=== PATIENT | male | born 1955 | race Caucasian/White ===

== ENCOUNTER 2020-08-18 01:33 | Outpatient (CLI) | payer MEDICARE, SELFPAY ==
[2020-08-18 19:31] LABS: SARS-CoV-2 RNA PCR Negative
== END 2020-08-18 01:34 | disposition home or self-care (01) ==
LOC: ANHCOVIDDT 01:33
PROVIDERS: PCP Family Medicine; Visit Provider Otolaryngology
DX: Z01.812 Encounter for preprocedural laboratory examination (principal); Z20.828 Contact with and (suspected) exposure to other viral communicable diseases
CPT/HCPCS: 87635; C9803; U0003

== ENCOUNTER 2020-08-21 00:11 | Day surgery (SDC) | payer MEDICARE, SELFPAY ==
[2020-08-13 10:15] VITALS: BMI 27.4
--- NOTE | 2020-08-15 14:39 | PC.NURSE ---
NEW TIME GIVEN TO PT
--- NOTE | 2020-08-20 12:43 | WPDANESEPPF ---
Anes - Initial Pre Proc Eval Procedure: Operation Date: 08/21/20 12:25 Proposed Procedures p Parathyroid Exploration - Lars Edward MD Date/Time: 08/20/20 12:43 Surgeon: Lars Edward MD Pre Op Diagnosis: Hyper Parathyroidism Patient Data Age: 65 Gender: M Height: 1.73 m Weight: 81.8 kg Allergies Allergy/AdvReac Type Severity Reaction Status Date / Time No Known Allergies Allergy Verified 08/21/20 10:07 Home Medications Medication Instructions Recorded Confirmed Type aspirin 81 mg tablet,delayed 81 mg PO DAILY 07/03/20 08/13/20 History release cholecalciferol (vitamin D3) 25 See Rx Instructions .ROUTE 07/03/20 08/13/20 Rx mcg (1,000 unit) tablet .COMPLEX #125 tablet multivit,calc,mins-folic 240 1 tablet PO QAM 07/03/20 08/13/20 History mcg-vit K1 30 mcg-lycopene 300 mcg tablet omeprazole 20 mg capsule,delayed 20 mg PO HS 07/03/20 08/13/20 History release tamsulosin 0.4 mg capsule 0.8 mg PO HS 07/03/20 08/13/20 History cholecalciferol (vitamin D3) 25 mcg PO DAILY 08/13/20 08/13/20 History Patient hx anesthesia problems: none Family hx anesthesia problems: none PMFSH Past Medical History Medical History (Updated 08/20/20 @ 12:43 by Kingston Esteban DO) Back pain GERD (gastroesophageal reflux disease) Hearing loss Hyperparathyroidism Osteoarthritis Surgical History Surgical History (Updated 08/20/20 @ 12:43 by Kingston Esteban DO) History of bladder surgery Family History Family History (Updated 07/03/20 @ 11:57 by Jeison Ruff) Other Arthritis Blood disorder CHF (congestive heart failure), NYHA class I COPD (chronic obstructive pulmonary disease) Cancer Cataract Diabetes mellitus Glaucoma H/O: HTN (hypertension) Prostate disease Ulcer Vision loss Social History Social History Smoking status: Never smoker Second hand tobacco smoke exposure: No Alcohol intake: never Substance use: never Substance use type: does not use Living arrangements: with family Spiritual care concerns: No Anes - Eval Final PreProcedure Day of Procedure 08/20/20 12:43 Patient weight: overweight Heart: regular rate and rhythm Lungs: clear to auscultation and normal air movement Airway: Mallampati scale class II Neurological: alert and oriented Last oral intake: >/= 8 hours ASA classification: III Emergent: no Anesthetic plan: proceed Anesthesia type and monitoring: general ETT and standard monitoring Informed Consent: The patient's anesthetic plan and its attendant risks and benefits were discussed with the patient/family/POA. Questions were solicited and answers provided to the satisfaction of the patient/family/POA.
--- NOTE | ~2020-08-21 | NM_ITS ---
EXAMINATION: NM parathyroid injection only DATE: 08/21/2020 11:16 INDICATION: Parathyroid adenoma TECHNIQUE/FINDINGS/IMPRESSION: 4.7 mCi Tc99m sestamibi was administered by intravenous route for intraoperative guidance during plan valentin parathyroidectomy to be performed by Dr. Edward. No images were requested or obtained. Reviewed, dictated and finalized at location A. OR LIVING ADVISOR
--- NOTE | 2020-08-21 06:14 | PM.HPGS ---
History of Present Illness History of Present Illness Consent: Risks, benefits, and alternatives have been discussed and questions answered. Patient agrees to proceed with procedure. Chief complaint: Hyper Parathyroidism Narrative: Elbert Erazo is a 65 year old male with documented parathyroid adenoma plan is to remove the parathyroid adenoma with a neck exploration Review of Systems Review of Systems: All systems reviewed & are unremarkable except as noted in HPI and below PMFSH Past Medical History Medical History (Updated 08/20/20 @ 12:43 by Kingston Esteban DO) Back pain GERD (gastroesophageal reflux disease) Hearing loss Hyperparathyroidism Osteoarthritis Surgical History Surgical History (Updated 08/20/20 @ 12:43 by Kingston Esteban DO) History of bladder surgery Family History Family History (Updated 07/03/20 @ 11:57 by Jeison Ruff) Other Arthritis Blood disorder CHF (congestive heart failure), NYHA class I COPD (chronic obstructive pulmonary disease) Cancer Cataract Diabetes mellitus Glaucoma H/O: HTN (hypertension) Prostate disease Ulcer Vision loss Social History Social History Smoking status: Never smoker Second hand tobacco smoke exposure: No Alcohol intake: never Substance use: never Substance use type: does not use Living arrangements: with family Spiritual care concerns: No Meds Home Medications and Allergies Home Medications Medication Instructions Recorded Confirmed Type aspirin 81 mg tablet,delayed 81 mg PO DAILY 07/03/20 08/13/20 History release cholecalciferol (vitamin D3) 25 See Rx Instructions .ROUTE 07/03/20 08/13/20 Rx mcg (1,000 unit) tablet .COMPLEX #125 tablet multivit,calc,mins-folic 240 1 tablet PO QAM 07/03/20 08/13/20 History mcg-vit K1 30 mcg-lycopene 300 mcg tablet omeprazole 20 mg capsule,delayed 20 mg PO HS 07/03/20 08/13/20 History release tamsulosin 0.4 mg capsule 0.8 mg PO HS 07/03/20 08/13/20 History cholecalciferol (vitamin D3) 25 mcg PO DAILY 08/13/20 08/13/20 History Allergies Allergy/AdvReac Type Severity Reaction Status Date / Time No Known Allergies Allergy Verified 08/13/20 10:10 Assessment and Plan Additional Plan Plan is a parathyroid exploration removal of parathyroid adenoma
--- NOTE | 2020-08-21 06:15 | WPDHPUPDATE1 ---
History and Physical Update Update Date/Time: 08/21/20 06:15 History and Physical has been reviewed, including an updated exam of the patient. There are NO changes in the patient's condition. Risks, benefits, and alternatives have been discussed and questions answered. Patient agrees to proceed with procedure.
[2020-08-21 09:37] VITALS: BP 147/81; PULSE 68; RESP 20; TEMP 36.6; O2SAT 100
[2020-08-21] MEDS: ACETAMINOPHEN 500 MG TABLET 1000 MG PO (10:10)
[2020-08-21] MEDS: LACTATED RINGERS 1,000 ML 30 ML IV CONT ×2 (10:19→12:40)
[2020-08-21] MEDS: LIDO 1%/EPINEPHRINE 1:100,000 50 ML VIAL INFILTRATE (11:07)
[2020-08-21] MEDS: ceFAZolin 2 GM/D5W 50 ML 2 GM/50 ML BAG IVPB (11:19)
--- NOTE | 2020-08-21 12:19 | SUR.OPER ---
Frozen section sent to pathology by kirill Lenz and received in pathology by Amalia
--- NOTE | 2020-08-21 12:35 | PM.PROC ---
Procedure Note - Detailed Date of procedure: 08/21/20 Pre-op diagnosis: Hyper Parathyroidism Post-op diagnosis: same Procedure performed: Parathyroid exploration Description of procedure: Patient was prepped and draped usual fashion general anesthesia a low collar incision was made injected xylocaine with adrenaline dissection carried down the muscles were retracted left lobe of the thyroid was identified a large parathyroid adenoma was identified dissected free by sharp and blunt dissection sent for frozen section confirmed to be a parathyroid adenoma was then closed in layers of no chromic and Monocryl and glue Anesthesia: GLMA Surgeon: Lars Edward MD Estimated blood loss (mL): 0 Drains: No Packing: No Pathology: yes Complications: No immediate complications Condition: stable Disposition: PACU Findings: Large left parathyroid adenoma
[2020-08-21 12:43] VITALS: BP 113/60; PULSE 88; RESP 10; TEMP 36.1; O2SAT 99
[2020-08-21 13:00] VITALS: BP 124/79; PULSE 87; RESP 14; O2SAT 98
[2020-08-21 13:15] VITALS: BP 122/79; PULSE 90; RESP 12; O2SAT 96
[2020-08-21 13:22] VITALS: BP 132/73; PULSE 75; RESP 14
[2020-08-21 13:50] VITALS: BP 115/65; PULSE 73; RESP 14
== END 2020-08-21 14:08 | disposition home or self-care (01) ==
PROVIDERS: PCP Family Medicine; Visit Provider Otolaryngology
PROC: (CPT 60500; principal; 2020-08-21 12:25)
DX: D35.1 Benign neoplasm of parathyroid gland (principal); E21.3 Hyperparathyroidism, unspecified; K21.9 Gastro-esophageal reflux disease without esophagitis; M19.90 Unspecified osteoarthritis, unspecified site; Z79.82 Long term (current) use of aspirin
CPT/HCPCS: 60500; 78808; 88305; 88331; A9270; A9500; J0690; J1100; J2370; J2405; J3010; J7120

== ENCOUNTER 2021-02-06 14:17 | Outpatient (CLI) | payer MEDICARE, SELFPAY ==
--- NOTE | 2021-02-06 14:48 | ECG_ITS ---
Measurements Intervals [place] Rate: 55 P: 52 VT: 153 QRS: 19 QRSD: 92 T: 61 QT: 393 QTc: 379 Interpretive Statements SINUS BRADYCARDIA CONSIDER INFERIOR INFARCT, AGE INDETERMINATE ABNORMAL ECG Electronically Signed On 02-06-2021 15:12:34 CDT by Boo Crain D.O.
== END 2021-02-06 14:18 | disposition home or self-care (01) ==
PROVIDERS: PCP Family Medicine; Visit Provider Family Medicine
DX: R07.89 Other chest pain (principal); R94.31 Abnormal electrocardiogram [ECG] [EKG]
CPT/HCPCS: 93005

== ENCOUNTER → 2022-08-13 10:17 | Outpatient (CLI) | payer MEDICARE, SELFPAY ==
--- NOTE | ~2022-08-13 | XR_ITS ---
XR chest 2V DATE: 08/13/2022 10:53 INDICATION: Chronic cough TECHNIQUE: 2 views COMPARISON: None FINDINGS: Normal heart size. No hilar or mediastinal enlargement. No pulmonary infiltrate or consolid ation, pleural effusion or pulmonary vascular congestion or pneumothorax. Minimal degenerative spurring of the thoracic spine. Minimal thoracic scoliosis. IMPRESSION: No active cardiopulmonary disease Reviewed, dictated and finalized at location B. ER STRAIGHTENED
== END ==
PROVIDERS: PCP Family Medicine; Visit Provider Family Medicine
DX: R05.3 Chronic cough (principal)
CPT/HCPCS: 71046

== ENCOUNTER 2023-05-27 21:32 | Emergency (ER) | payer MEDICARE, SELFPAY ==
[2023-05-27 21:34] VITALS: BP 141/73; PULSE 79; RESP 15; TEMP 37.1; O2SAT 98
[2023-05-27 23:57] VITALS: BP 148/72; PULSE 72; RESP 15; TEMP 36.7; O2SAT 97
[2023-05-28 01:17] VITALS: BP 149/74; PULSE 60; RESP 18; O2SAT 98
--- NOTE | 2023-05-28 01:42 | ED.ALLEREA ---
HPI - Allergic Reaction General Chief complaint: Allergic Reaction Stated complaint: bee sting Time Seen by Provider: 05/28/23 01:28 Source: patient Mode of arrival: ambulatory Limitations: no limitations History of Present Illness HPI narrative: This is a 68-year-old male that presents to the emergency department for an insect sting on his left ear. Reports he was stung by a bee yesterday morning. He took a dose of Benadryl in the afternoon. He has continued to have swelling of his left outer ear and left lower eyelid. Denies difficulty breathing or trouble swallowing. Related Data Home Medications Medication Instructions Recorded Confirmed aspirin 81 mg tablet,delayed 81 mg PO DAILY 07/03/20 11/28/20 release (Adult Aspirin Regimen) multivit,calc,mins-folic 240 1 tablet PO QAM 07/03/20 11/28/20 mcg-vit K1 30 mcg-lycopene 300 mcg tablet (One-A-Day Men's Complete) omeprazole 20 mg capsule,delayed 20 mg PO HS 07/03/20 11/28/20 release tamsulosin 0.4 mg capsule 0.8 mg PO HS 07/03/20 11/28/20 cholecalciferol (vitamin D3) 25 25 mcg PO DAILY 08/13/20 11/28/20 mcg (1,000 unit) tablet Allergies Allergy/AdvReac Type Severity Reaction Status Date / Time No Known Allergies Allergy Verified 05/28/23 01:21 Review of Systems Review of Systems: CONSTITUTIONAL: Denies fever SKIN: Reports itching. All systems reviewed & are unremarkable except as noted in HPI and below PMFSH Past Medical History Medical History (Updated 05/28/23 @ 01:44 by Richa Costello PA-C) Back pain GERD (gastroesophageal reflux disease) Hearing loss Hyperparathyroidism Osteoarthritis Surgical History Surgical History (Updated 08/20/20 @ 12:43 by Kingston Esteban DO) History of bladder surgery Family History Family History (Updated 07/03/20 @ 11:57 by Jeison Ruff) Other Arthritis Blood disorder CHF (congestive heart failure), NYHA class I COPD (chronic obstructive pulmonary disease) Cancer Cataract Diabetes mellitus Glaucoma H/O: HTN (hypertension) Prostate disease Ulcer Vision loss Social History Social History Smoking status: Never smoker Second hand tobacco smoke exposure: No Alcohol intake: never Substance use: never Substance use type: does not use Living arrangements: with family Spiritual care concerns: No Exam Narrative: GENERAL: Well-appearing, well-nourished, and in no acute distress. HEAD: Normocephalic, atraumatic. Mild swelling of the left lower eyelid and left outer ear EYES: EOMI. ENT: Nares clear, no rhinorrhea or epistaxis. Mucous membranes moist. Oropharynx without tonsillar hypertrophy exudate or other lesions. CHEST: Clear to auscultation. No respiratory distress. No wheezes rales or rhonchi HEART: Regular rate and rhythm. No murmur heard. Normal peripheral pulses. EXTREMITIES: Normal range of motion. No edema. SKIN: Warm, dry, no rash. NEURO: No focal deficits. Alert and oriented x3. PSYCH: Normal mood and affect Course Course Emergency Course: Patient and family agree with plan of care Vital Signs Vital signs: Vital Signs Temperature 98.8 F 05/27/23 21:34 Pulse Rate 79 05/27/23 21:34 Respiratory Rate 15 05/27/23 21:34 Blood Pressure 141/73 H 05/27/23 21:34 Pulse Oximetry 98 05/27/23 21:34 Oxygen Delivery Room Air 05/27/23 21:34 Temperature 98.1 F 05/27/23 23:57 Pulse Rate 60 05/28/23 01:17 Respiratory Rate 18 05/28/23 01:17 Blood Pressure 149/74 H 05/28/23 01:17 Pulse Oximetry 98 05/28/23 01:17 Oxygen Delivery Room Air 05/27/23 21:34 MDM - Allergic Reaction MDM Narrative Medical decision making narrative: Patient presents to the ER for an insect sting. Patient with mild swelling of his left outer ear and under the left eye. There is no airway involvement. His lungs are clear on exam. Oxygen saturation is normal on r
[2023-05-28] MEDS: predniSONE 20 MG TABLET 40 MG PO (02:22)
[2023-05-28 02:24] VITALS: BP 150/73; PULSE 83; RESP 15; O2SAT 99
== END 2023-05-28 02:28 | disposition home or self-care (01) ==
LOC: ANHED 05-28 02:13
PROVIDERS: Emergency Provider Physician Assistant; PCP Family Medicine
DX: T63.441A Toxic effect of venom of bees, accidental (unintentional), initial encounter (principal); E21.3 Hyperparathyroidism, unspecified; K21.9 Gastro-esophageal reflux disease without esophagitis; M19.90 Unspecified osteoarthritis, unspecified site; Z79.82 Long term (current) use of aspirin
CPT/HCPCS: 99283; J7512

== ENCOUNTER 2024-03-07 11:03 | Outpatient (CLI) | payer MEDICARE, SELFPAY ==
--- NOTE | ~2024-03-07 | XR_ITS ---
Right Hand Technique: PA and lateral views were obtained. Clinical History: Pain Findings: No acute fracture or dislocation is seen. Osseous alignment is anatomic. There is degenerat augustina change of the interphalangeal joint of the thumb and second DIP joint. Soft tissues are unremarka ble. Impression: Degenerative changes, as above. Reviewed, dictated and finalized at location M. Impression: Degenerative changes, as above.
--- NOTE | ~2024-03-07 | XR_ITS ---
Left Hand Technique: PA, oblique, and lateral views were obtained. Clinical History: Pain Findings: No acute fracture or dislocation is seen. Osseous alignment is anatomic. There is degenerat augustina change predominantly the interphalangeal joint of the thumb and second DIP joint.. Soft tissues a re unremarkable. Impression: Degenerative change, as above. Reviewed, dictated and finalized at location M. Impression: Degenerative change, as above.
== END 2024-03-07 11:04 ==
PROVIDERS: Visit Provider Family Medicine
DX: M79.645 Pain in left finger(s) (principal); M79.644 Pain in right finger(s)
CPT/HCPCS: 73120

== ENCOUNTER 2025-04-27 09:36 | Outpatient (CLI) | payer MEDICARE, SELFPAY ==
--- NOTE | ~2025-04-27 | XR_ITS ---
EXAM/PROCEDURE: XR chest 2V - 04/27/2025 9:42 CDT HISTORY: 70 years old Male with Asbestos exposure TECHNIQUE: Two view(s) of the chest. COMPARISON: None available. FINDINGS: LUNGS/ PLEURA: No focal consolidation. No appreciable pneumothorax or large pleural effusion. HEART/ MEDIASTINUM: Heart appears normal in size. BONES: No acute osseous abnormality. OTHER: Visualized upper abdomen is unremarkable. IMPRESSION: No acute process. Reviewed, dictated and finalized at location N. IMPRESSION: No acute process.
== END 2025-04-27 09:37 | disposition home or self-care (01) ==
LOC: MICIMG 09:39
PROVIDERS: PCP Family Medicine; Visit Provider Family Medicine
DX: Z77.090 Contact with and (suspected) exposure to asbestos (principal)
CPT/HCPCS: 71046